=== PATIENT | female | born 1945 | race Caucasian/White ===

== ENCOUNTER → 2016-03-16 | Day surgery (SDC) | payer MEDICARE, OTHER ==
[~2016-03-16] MED LIST: DICY20TA30 PO; DULO60CA6 PO; HYDR-2762 PO; HYDR-971 PO; INSU100C SQ; INSU100V13 SQ; LIDOCAINE 1%/EPI 1:100,000 20 ML VIAL. IJ ONE; LIDOCAINE 1%/EPI 1:100,000 20 ML VIAL. ONE; METO10TA81 PO; OMEP40CA5 PO; ONDA4TAB7 PO; SIMV40TA3 PO
[2016-03-16 12:09] VITALS: BP 111/70
--- NOTE | 2016-03-16 13:24 | PDOC ---
BRIEF OPERATIVE NOTE Pre-Op Diagnosis chronic skin infection excision of 3 cm chronic skin infection local dai [facility] [place] [place] [facility] ISRAEL Carey MD Mar 16, 2016 13:24
--- NOTE | 2016-03-16 19:31 | OP ---
DATE OF SURGERY: 03/16/2016 PREOPERATIVE DIAGNOSIS: Chronic abdominal skin infection. POSTOPERATIVE DIAGNOSIS: Chronic abdominal skin infection. PROCEDURE: Excision of 3 cm chronic abdominal skin infection. SURGEON: Israel Haines MD ANESTHESIA: Local. ESTIMATED BLOOD LOSS: Less than 5 mL. IV FLUIDS: None. INDICATIONS: The patient is a 70-year-old female who has had for approximately 10 months this area on her abdominal wall where she previously injected insulin. That has been chronically infected. It worsens and then improves, all in all it just remains tender, indurated and dark, erythematous, purplish color. She would like to have it excised. PROCEDURE IN DETAIL: After informed consent was obtained, the patient was in the minor operating room. She was placed in the supine position. She was prepped and draped in usual sterile fashion. The skin was injected with local anesthetic. Elliptical skin incision was made around this chronically inflamed and infected area and extended through subcutaneous tissue sharply. The specimen was sent to pathology for examination. It measured 3 cm. The wound was closed in layers. The deep layer was closed with 3-0 Vicryl in a running fashion. The skin was closed with 4-0 Monocryl in running subcuticular fashion. Sterile dressings were placed. She tolerated the procedure well. There were no apparent complications. She was then discharged to home in stable condition. ISRAEL HAINES MD DR: VIET/chaparro JOB#: [id number] / [id number] DENIA Greene MD, LINDA NP MTDD
--- NOTE | 2016-03-17 16:34 | PATHOLOGY ---
PATHOLOGY REPORT * * * * * * * * FINAL DIAGNOSIS: Skin and subcutaneous tissue, abdomen: - Epidermal inclusion cyst, ruptured, with acute and chronic inflammation, foreign body giant cell reaction, and scarring. COMMENT: There is no evidence of malignancy. (JPM:; d/t: 03/17/16) REPORT ELECTRONICALLY SIGNED BY: Cristofer Kaplan M.D. DATE/TIME: 03/17/2016 16:33 * * * * * * * * GROSS PATHOLOGY: Received in formalin labeled "Ginger Meneses and chronic abdominal skin infection," is a 2.5 x 1.4 x 0.6 cm ellipse of skin displaying a 1.3 x 0.7 cm pink-garcia, poorly circumscribed, wrinkled, and scar-like lesion. The margins are inked black. The specimen is sectioned into 10 pieces and entirely submitted in cassettes A1 through A3, with the tips placed in cassette A3. (TTL; 03/16/2016) INITIAL CPT CODE(S): 16576 Professional services performed by [facility] [place] [address] Technical services performed by [facility] at [address] [place] [address]. SPECIMEN(S) RECEIVED: A.Chronic abdominal skin infection CLINICAL HISTORY: Chronic abdominal skin infection PATIENT: GINGER MENESES /AGE: 709/11/1945 (Age: 70) PATIENT #: [id number] ALT CASE #: SPECIMEN COLLECTION DATE: 03/16/2016 SPECIMEN RECEIVED DATE: 03/16/2016 [facility] - [address] [place] [address] - PHONE: [phone] * * * END OF REPORT * * *
== END | disposition home or self-care (01) ==
LOC: SURG 11:09
PROVIDERS: ATTEND Surgery
DX: L72.0 Epidermal cyst (principal); E78.00 Pure hypercholesterolemia, unspecified; J45.909 Unspecified asthma, uncomplicated; Z90.49 Acquired absence of other specified parts of digestive tract; K21.9 Gastro-esophageal reflux disease without esophagitis; Z90.710 Acquired absence of both cervix and uterus; Z90.721 Acquired absence of ovaries, unilateral; M19.90 Unspecified osteoarthritis, unspecified site; E11.9 Type 2 diabetes mellitus without complications; F17.200 Nicotine dependence, unspecified, uncomplicated
CPT/HCPCS: 11403; 12031; 88304; J3490

== ENCOUNTER → 2016-10-02 | Outpatient (CLI) | payer MEDICARE, OTHER ==
[2016-03-16 12:09] VITALS: BP 111/70
[~2016-10-02] MED LIST changes: -LIDOCAINE 1%/EPI 1:100,000 20 ML VIAL. IJ ONE; -LIDOCAINE 1%/EPI 1:100,000 20 ML VIAL. ONE
--- NOTE | 2016-10-02 11:36 | KCIC ---
Indication: Postmenopausal. Bone mineral analysis of the lumbar spine and left hip was performed. The bone mineral density of the lumbar spine L1-L4 is 0.969 with a T score of -0.7. The bone mineral density of the left hip is 0.702 with a T score of -2.0. IMPRESSION: Normal bone mineral density of the lumbar spine and osteopenia of the left hip. Electronically signed by: Dex Mauricio MD (10/02/2016 11:32 AM) [id number]
--- NOTE | 2016-10-02 12:11 | KCIC ---
Bilateral digital screening mammograms: Reason for examination: Routine screening. Baseline exam. The skin and nipples show no abnormalities. No abnormal axillary lymph nodes are seen. The breast parenchyma shows scattered fibroglandular density. (Breast density: Category B.) There are some clustered calcifications at the 5:00 C position of the right breast. Recommend further evaluation with coned indication views in CC and true lateral projections. There are no other dominant masses, suspicious calcifications or architectural distortions. Impression: Clustered calcifications at the 5:00 C position of the right breast. Recommend coned magnification views in CC and true lateral projections. BI-RADS category 0: Incomplete. Coned magnification views are recommended. "Our facility is accredited by the [employer] Mammography [employer]." This patient's information has been entered into a reminder system for the patient to be notified with the results of her examination and a target date for the next mammogram. Electronically signed by: Maria De Jesus Triplett MD (10/02/2016 12:08 PM) [id number]
== END | disposition home or self-care (01) ==
LOC: KCIC MAMMO 09:45
PROVIDERS: ATTEND Physician Assistant
DX: Z12.31 Encounter for screening mammogram for malignant neoplasm of breast (principal); M81.0 Age-related osteoporosis without current pathological fracture; Z78.0 Asymptomatic menopausal state
CPT/HCPCS: 77080; G0202; 77067